=== PATIENT | female | born 1955 | race Caucasian/White ===

== ENCOUNTER 2024-10-01 14:21 | Emergency (ER) | payer MEDICARE ==
[2024-10-01] MEDS ORDERED: Acetaminophen/Codeine 30-300mg Tablet ONE (16:55)
[2024-10-01] MEDS ORDERED: diphenhydrAMINE 25 MG CAP ONE (16:55)
== END 2024-10-01 18:13 | disposition home or self-care (01) ==
LOC: CSHERS 14:21
DX: M25.421 Effusion, right elbow (principal); W19.XXXA Unspecified fall, initial encounter; W22.01XA Walked into wall, initial encounter